=== PATIENT | male | born 1990 | race Caucasian/White ===

== ENCOUNTER 2023-05-12 12:37 | Emergency (ER) | payer OTHER ==
[~2023-05-12] VITALS: Ht 177.8 cm; Wt 79.3 kg
[2023-05-12] MEDS ORDERED: IBUP200C25 PO (13:13)
[2023-05-12 18:21] VITALS: BP 134/80; TEMP 97.9; O2SAT 100
== END 2023-05-12 18:20 | disposition home or self-care (01) ==
LOC: M ED 12:37
DX: S19.9XXA Unspecified injury of neck, initial encounter (principal); R20.0 Anesthesia of skin; Z79.1 Long term (current) use of non-steroidal anti-inflammatories (NSAID); Y93.75 Activity, martial arts